=== PATIENT | female | born 1955 | race Caucasian/White ===

== ENCOUNTER 2017-12-23 13:00 | Emergency (ER) | payer OTHER ==
[~2017-12-23] VITALS: Ht 162.6 cm; Wt 56.2 kg
--- NOTE | 2017-12-23 13:05 | NUR ---
PT BIBRA FROM HOME TO ER BED 04. C/O SOB, ON AND OFF CP AND TIGHTNESS FOR DAYS. 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 GOWNED AND PLACED ON MONITOR. VSS. AWAITING MD MENJIVAR.
--- NOTE | 2017-12-23 13:09 | NUR ---
DR MEJIA AT BEDSIDE FOR EVAL.
[2017-12-23] MEDS ORDERED: LORAZEPAM 1 MG TABLET ONE (13:15)
--- NOTE | 2017-12-23 13:18 | NUR ---
PT APPEARS CALM AND RELAX AT THIS TIME. ORDERED FOR ATIVAN PO HOLD FOR NOW PER PT REQUEST.
[2017-12-23] MEDS: LORAZEPAM 1 MG TABLET PO ONE ×2 (13:23→13:43)
--- NOTE | 2017-12-23 13:26 | NUR ---
SEWER HEAD AT BEDSIDE FOR BLOOD DRAW.
[2017-12-23 13:39] LABS: BASOPHILS # (AUTO) 0.1 /CMM (0.0-0.2); EOSINOPHILS % (AUTO) 0.9 % (0.0-6.0); HEMATOCRIT 39 % (33-45); LYMPHOCYTES # (AUTO) 0.8 /CMM (0.8-4.8); LYMPHOCYTES % (AUTO) 13.1 % (20.0-44.0); MEAN CORPUSCULAR HEMOGLOBIN 29 PG (26.0-33.0); MEAN CORPUSCULAR HGB CONC 33 g/dl (31.0-36.0); MEAN CORPUSCULAR VOLUME 88 fL (82-100); MONOCYTES # (AUTO) 0.4 /CMM (0.1-1.30); MONOCYTES % (AUTO) 6.9 % (2.0-12.0); NEUTROPHILS # (AUTO) 4.7 /CMM (1.8-8.9); NEUTROPHILS % (AUTO) 77.1 % (43.0-81.0); PLATELET COUNT (AUTO) 240 /CMM (150-450); RDW COEFFICIENT OF VARIATION 12.5 (11.5-15.0); RED BLOOD CELL COUNT(AUTO) 4.48 MIL/uL (4.0-5.2); WHITE BLOOD COUNT (AUTO) 6.1 K/uL (4.3-11.0)
[2017-12-23 13:50] LABS: CALCIUM, SERUM 9.2 mg/dL (8.5-10.1); CARBON DIOXIDE 31 mmol/L (21-32); CHLORIDE 101 mmol/L (98-107); CREATININE 0.7 mg/dL (0.6-1.3); GLUCOSE 114 mg/dL (74-106); POTASSIUM 4.2 mmol/L (3.5-5.1); SODIUM SERUM 135 mmol/L (136-145); UREA NITROGEN, BLOOD 12 mg/dL (7-18)
[2017-12-23 13:57] LABS: ALANINE AMINOTRANSFERASE 25 U/L (12-78); ALBUMIN 3.9 g/dL (3.4-5.0); ALCOHOL, BLOOD < 3 mg/dL (0-0); ALKALINE PHOSPHATASE 63 U/L (46-116); ASPARTATE AMINOTRANSFERASE 23 U/L (15-37); BILIRUBIN,DIRECT 0.1 mg/dL (0.0-0.2); BILIRUBIN,TOTAL 0.3 mg/dL (0.2-1.0)
[2017-12-23 14:00] LABS: TROPONIN I < 0.017 ng/mL (0.00-0.056)
--- NOTE | 2017-12-23 14:12 | NUR ---
Patient discharged to home in stable condition. Written and verbal after care instructions given. Patient verbalizes understanding of instruction.
[2017-12-23 14:14] VITALS: BP 132/72
== END 2017-12-23 14:15 | disposition home or self-care (01) ==
LOC: ER 13:02
DX: F41.9 Anxiety disorder, unspecified (principal)
CPT/HCPCS: 36415; 71045; 80048; 80076; 80305; 84484; 85025; 93005; 99285; A4606; G0480; Z7610